=== PATIENT | female | born 1945 | race Caucasian/White ===

== ENCOUNTER 2019-01-07 14:54 | Emergency (ER) | payer OTHER, BC ==
[2019-01-07 15:14] VITALS: BP 147/87; PULSE 90; TEMP 98.4; BMI 36.6
[2019-01-07 15:47] LABS: BASO % 0.5 % (0-2.0); EOS % 4.5 % (0-4.5); HEMATOCRIT 25.1 % (32.4-45.2); HEMOGLOBIN 7.9 GM/dl (10.7-15.3); LYMPH % 20.5 % (8-40); MCH 22.3 pg (25.7-33.7); MCHC 31.5 g/dl (32.0-36.0); MEAN CELL VOLUME 70.7 fl (80-96); MEAN PLT VOLUME 7.9 fl (7.5-11.1); MONO % 6.6 % (3.8-10.2); NEUT % 67.9 % (42.8-82.8); PLATELET COUNT 377 K/MM3 (134-434); RBC 3.55 M/mm3 (3.60-5.2); RDW 16.7 % (11.6-15.6); WHITE BLOOD COUNT 11.5 K/mm3 (4.0-10.8)
[2019-01-07 15:48] LABS: ADD RBC MORPHOLOGY YES
--- NOTE | 2019-01-07 16:14 | PDOC ---
Documentation entered by Freedom Nascimento SCRIBE, acting as scribe for Charmaine Adam MD. Charmaine Adam MD: This documentation has been prepared by the Azam fisher Daniel, SCRIBE, under my direction and personally reviewed by me in its entirety. I confirm that the documentation accurately reflects all work, treatment, procedures, and medical decision making performed by me. History of Present Illness - General Chief Complaint: Lightheaded Stated Complaint: LOW H/H History Source: Patient Exam Limitations: No Limitations - History of Present Illness Initial Comments: 01/07/19 16:14 The patient is a 73 year old female with a past medical history of HTN, HLD, and GERD, hemorrhoids sent in today by her PCP for evaluation of abnormal lab values, for low h/H with Hb 7.1. Patient reports that she had blood draw last monday (01/04/19) in preparation for a colonoscopy and that her hemoglobin count was 7. She reports that this happened once before approximately 6 months ago, had anemia and was planned for colonoscopy at that time but ultimately cancelled.. She notes that she has hemorrhoids that bleed but denies any associated pain. not compliant with iron pills. Patient denies headache, lightheadedness. Denies fever, chills. Denies chest pain, shortness of breath. Denies nausea, vomiting, diarrhea, abdominal pain. Allergies: Social history: Denies illicit drug, alcohol, and tobacco use. PCP: Kia Escalante GI: Mani Kelley 01/07/19 16:21 01/07/19 16:21 Past History - Past Medical History Allergies/Adverse Reactions: Allergies Allergy/AdvReac Type Severity Reaction Status Date / Time No Known Allergies Allergy Verified 01/07/19 14:56 Home Medications: Ambulatory Orders Atenolol [Tenormin] 50 mg PO DAILY 01/07/19 Atorvastatin Ca [Lipitor] 10 mg PO HS 01/07/19 Lisinopril 10 mg PO HS 01/07/19 Ranitidine [Zantac -] 150 mg PO DAILY 01/07/19 Review of Systems - Review of Systems Able to Perform ROS?: Yes Comments:: 01/07/19 16:14 Constitutional: no fevers or chills. HEENT: no headache or dizziness. No congestion. No visual/hearing disturbances. CVS: no cp or syncope. Resp: no sob. No cough. Gastrointestinal: no abdominal pain, nausea or vomiting. Genitourinary: no urinary sx, hematuria. MUSCULOSKELETAL: No joint pain and swelling. No neck or back pain. SKIN: no redness or skin changes, no discharge, no rash. No wounds. Hematologic: no easy bruising/bleeding. +anemia NEUROLOGIC: No headache, dizziness, LOC or altered mental status. No weakness, numbness or tingling. Psych: no anxiety or depression Allergic/Immunologic: no allergies All other systems reviewed and negative, or as documented in HPI. 01/07/19 16:21 *Physical Exam - Vital Signs Last Vital Signs Temp Pulse Resp BP Pulse Ox 98.4 F 90 20 147/87 100 01/07/19 14:55 01/07/19 14:55 01/07/19 14:55 01/07/19 14:55 01/07/19 14:55 - Physical Exam Comments: 01/07/19 16:15 General: Well appearing, awake and alert, NAD. HEENT: NCAT, PERRL, EOMI, pale conjunctiva, anicteric, moist mucus membranes, clear oropharynx, no oral lesions.. Neck: neck supple, FROM Resp: CTAB, normal and even respirations, no respiratory distress CVS: RRR, no murmurs, 2+ peripheral pulses throughout, no peripheral edema Abdomen: soft, NTND, no rebound or guarding. No CVAT. Rectal: +external non bloody non thrombosed hemorrhoids and skin tags. no gross blood. Back: nontender, normal inspection and ROM MSK: no edema, CARABALLO x4, ROM intact. No clubbing or cyanosis. normal bulk and tone. Extremities: no calf tenderness Neuro: alert, oriented appropriately; no focal neurologic deficits Skin: warm and well perfused, cap refill <2 sec, mild pallor 01/07/19 16:22 ED Treatment Course - LABORATORY CBC & Chemistry Diagram: 01/07/19 15:38 - ADDITIONAL ORDERS Additional order review: 01/07/19 15:38 RBC 3.55 L MCV 70.7 L MCHC 31.5 L RDW 16.7 H D MPV 7.9 Neutrophils % 67.9 Lymphocytes % 20.5 Monocytes % 6.6 Eosinophils % 4.5 Basophils % 0.5 Medical Decision Making - Medical Decision Making 01/07/19 16:22 CBC recheck with confirmed anemia Hb 7.9, mildly symptomatic with notable pallor and h/o GIB without colonoscopy >10 years. advised further workup, call to PMD, transfusion for sx anemia, but pt declined The patient has requested to leave the ED against medical advice. The patient reason(s) for leaving include, but are not limited to, the following: she would like to consider with her GI and PMD for consultation before transfusion. I believe this patient is of sound mind and competent to refuse medical care. The patient is responding and asking questions appropriately. The patient is oriented to person, place and time. The patient is not psychotic, delusional, suicidal, homicidal or hallucinating. The patient demonstrates a normal mental capacity to make decisions regarding their healthcare. The patient is clinically sober and does not appear to be under the influence of any illicit drugs at this time. The patient has been advised of the risks, in layman terms, of leaving AMA which include, but are not limited to cardiac arrest, severe infection, mass, blood stream infection, dehydration, bleeding, liver failure, myocardial infarction, arrhythmia, stroke, respiratory failure, delay in diagnosis and management, loss of current lifestyle, loss of functional status, multiorgan failure, coma, severe disability and . Alternatives have been offered - the patient remains steadfast in their wish to leave. The patient has been advised that should they change their mind they are welcome to return to this hospital, or any other, at any time. The patient understands that in no way does an AMA discharge mean that I do not want them to have the best medical care available. To this end, I have provided appropriate prescriptions, referrals, and discharge instructions. The patient did sign AMA paperwork. The above discussion was witnessed by another member of staff, DANIEL Alcaraz clinical update with Dr Escalante - informed of results, followup outpatient. GI follow up by pt herself, will call and arrange for advised to start iron pills - as she has not been compliant. strict return precautions provided - bleeding, pain, syncope, sob, dizziness, pallor or other concerning sx. 01/08/19 14:18 *DC/Admit/Observation/Transfer Diagnosis at time of Disposition: Anemia, Hemorrhoid - Discharge Dispostion Disposition: TRANSFER ACUTE CARE/OTHER HOSP Condition at time of disposition: Stable Decision to Admit order: No - Referrals Referrals: Mani Kelley MD [Staff Physician] - Gurmeet Escalante [Primary Care Provider] - - Patient Instructions Printed Discharge Instructions: Anemia Additional Instructions: You are choosing to leave the ED against medical advice. The patient reason(s) for leaving include, but are not limited to, the following: you would like to speak and consult with your doctor your GI doctor may not perform a colonoscopy with your acute on chronic anemia you were advised to get optimized and transfused for your severe anemia. Your Hemoglobin was 7.9, Hematocrit 25.1 - this is very low compared to normal results for your gender and your prior results, hence your doctor sent you in for thorough evaluation You have been advised of the risks, in layman terms, of leaving AMA which include, but are not limited to cardiac arrest, severe infection, mass, blood stream infection, dehydration, bleeding, liver failure, myocardial infarction, arrhythmia, stroke, respiratory failure, delay in diagnosis and management, loss of current lifestyle, loss of functional status, multiorgan failure, coma, severe disability and . Alternatives have been offered - please consult with your doctor, resume iron pills and check your hemorrhoids and underlying GI bleeding /mass as possible causes. You have been advised that should they change their mind they are welcome to return to this hospital, or any other, at any time. you understand that in no way does an AMA discharge mean that I do not want them to have the best medical care available. To this end, you have been provided appropriate prescriptions, referrals, and discharge instructions. AMA paperwork signed. if worsening symptoms of shortness of breath, dizziness, color change, pallor, passing out, lethargy, bleeding, return sooner for further evaluation. - Post Discharge Activity
[2019-01-07 19:12] LABS: ANISOCYTOSIS 1+; PLATELET ESTIMATE ADEQUATE
== END 2019-01-07 16:18 | disposition left against medical advice (07) ==
LOC: FER 14:54 → SUPCPDRO 14:54 → FER 16:18
DX: D64.9 Anemia, unspecified (principal); K64.9 Unspecified hemorrhoids; I10 Essential (primary) hypertension; E78.5 Hyperlipidemia, unspecified; K21.9 Gastro-esophageal reflux disease without esophagitis
CPT/HCPCS: 36415; 85025; 99283-25

== ENCOUNTER 2020-05-10 09:24 | Emergency (ER) | payer OTHER, BC ==
--- NOTE | 2020-05-10 09:27 | PDOC ---
History of Present Illness <Ryan Espinoza - Last Filed: 05/10/20 09:53> - History of Present Illness Initial Comments: HPI 74yo F with PMH HTN, HLD, hx of colon ca s/p resection and chemotherapy, currently in remission, who presents with skin lesion above left eye x3 days. States that it has been worsening over the past 3 days with associated increased swelling in left lower eyelid. Has been using mupirocin () for 2 days without any improvement. States that she has previously had similar appearing lesion that resolved, although she does not remember what treatment was used, if any. Denies any known triggers or exposures - denies any new lotions, insect bites, sick contacts . Denies any change in vision; fevers, chills, chest pain, n/v, other rashes/lesions. Review of Systems CONSTITUTIONAL:denies fever, chills HEENT:denies rhinorrhea, nasal congestion, sore throat, eye pain, visual changes CARDIOVASCULAR:denies chest pain, palpitations, peripheral edema RESPIRATORY:denies cough, shortness of breath GASTROINTESTINAL: denies abdominal pain, nausea, vomiting MUSCULOSKELETAL:denies myalgia, arthralgia HEMATOLOGIC/IMMUNOLOGIC:denies easy bleeding, easy bruising NEUROLOGIC:denies headache, dizziness, mental status changes SKIN:reports lesion above eye; denies other rash, itching, pallor Physical Exam General: awake, alert, fully oriented, in no acute distress, well developed, well nourished Head: normocephalic, atraumatic Eyes: PERRL, EOMI, anicteric sclera, conjunctiva clear ENT: hearing grossly normal, moist mucous membranes Lung: equal breath sounds b/l, CTA b/l, no crackles, wheezes; no distress, speaks full sentences Heart: RRR, normal S1, S2, no murmurs appreciated Extremities: normal ROM, no edema, no erythema or tenderness Neuro: CN2-12 grossly intact, moves all extremities, normal speech, normal gait, sensation intact Skin: 1cm oval lesion at medial left eyelid with associated crusting, erythema, slight purulent drainage; slight left lower eyelid edema; warm, dry, normal skin turgor, capillary refill <2 seconds MDM 74yo F with PMH HTN, HLD, hx of colon ca s/p resection and chemotherapy, currently in remission, who presents with skin lesion above left eye x3 days. DDx including but not limited to: impetigo BP elevated on arrival - pt states that she did not take her HTN meds this am Will send mupirocin to her pharmacy Disposition: Discharge <Ana Armstrong - Last Filed: 05/10/20 17:37> - General Stated Complaint: LEFT EYE LESION/WOUND "SORE" Time Seen by Provider: 05/10/20 09:26 Past History <Ryan Espinoza - Last Filed: 05/10/20 09:53> - Medical History COPD: No - Psycho-Social/Smoking History Smoking History: Never smoked Have you smoked in the past 12 months: No <Ana Armstrong - Last Filed: 05/10/20 17:37> - Medical History Allergies/Adverse Reactions: Allergies Allergy/AdvReac Type Severity Reaction Status Date / Time No Known Allergies Allergy Verified 05/10/20 09:25 Home Medications: Ambulatory Orders Atenolol [Tenormin] 50 mg PO DAILY 01/07/19 Atorvastatin Ca [Lipitor] 10 mg PO HS 01/07/19 Amlodipine Besylate [Norvasc -] 5 mg PO DAILY 05/10/20 Mupirocin Ointment [Bactroban 2% Ointment -] 1 applic TP TID #1 tube 05/10/20 *Physical Exam - Vital Signs Last Vital Signs Temp Pulse Resp BP Pulse Ox 98.7 F 88 16 195/93 H 98 05/10/20 09:24 05/10/20 09:24 05/10/20 09:24 05/10/20 09:24 05/10/20 09:24 <Ryan Espinoza - Last Filed: 05/10/20 09:53> Discharge <OuRyan - Last Filed: 05/10/20 09:53> - Discharge Information Problems reviewed: Yes <Ana Armstrong - Last Filed: 05/10/20 17:37> - Discharge Information Clinical Impression/Diagnosis: Impetigo Condition: Stable Disposition: HOME - Additional Discharge Information Prescriptions: Mupirocin Ointment [Bactroban 2% Ointment -] 1 applic TP TID #1 tube - Follow up/Referral Referrals: Gurmeet Escalante [Primary Care Provider] - - Patient Discharge Instructions Patient Printed Discharge Instructions: DI for Impetigo Additional Instructions: You came into the ER for impetigo. In the ED, you were evaluated with physical exam. You do not appear to be an acute need for immediate hospitalization. You were advised to follow up with your primary care doctor as needed. You were given a prescription for mupirocin. Apply this to the affected area three times a day until your symptoms resolve. You also need to have your blood pressure re-checked by your primary doctor, as it was slightly elevated today. Uncontrolled blood pressure can eventually lead to kidney disease, heart disease, other serious illness, disability, or even . Come back to the ER immediately with any new or worsening concerns. Thank you for coming to the [facility] ER. We hope you feel better soon! - Post Discharge Activity
[2020-05-10 09:30] VITALS: BP 195/93; PULSE 88; TEMP 98.7; BMI 34.9
--- NOTE | 2020-05-10 09:52 | PDOC ---
Attending Attestation - Resident Resident Name: Ana Armstrong - ED Attending Attestation I have performed the following: I have examined & evaluated the patient, The case was reviewed & discussed with the resident, I agree w/resident's findings & plan, Exceptions are as noted - HPI HPI: 05/10/20 09:47 74 F with h/o HTN, colon CA s/p resection and chemotherapy, presenting to ED with lesion above L eye. Pt states that 3 days ago she noticed a small sore medial to her L eyebrow. Over the next few days, it got progressively bigger. She notes yellow crusting and clearish drainage from the sore. Denies any F/C or other symptoms. Pt notes that she had a similar lesion near her lip several years ago that was treated with abx ointment. She has been applying her old mupirocin ointment to the sore but notes the ointment in 2014. - Physicial Exam PE: 05/10/20 09:49 "GENERAL: Awake, alert, and fully oriented, in no acute distress. HEAD: No signs of trauma EYES: PERRLA, EOMI, sclera anicteric, conjunctiva clear ENT: Auricles normal inspection, hearing grossly normal, nares patent, oropharynx clear without exudates. Moist mucosa NECK: Nontender, no stepoffs, Normal ROM, supple, no lymphadenopathy, JVD, or masses LUNGS: Breath sounds equal, clear to auscultation bilaterally. No wheezes, and no crackles HEART: Regular rate and rhythm, normal S1 and S2, no murmurs, rubs or gallops ABDOMEN: Soft, nontender, normoactive bowel sounds. No guarding, no rebound. No masses EXTREMITIES: Normal range of motion, no edema. No clubbing or cyanosis. No cords, erythema, or tenderness NEUROLOGICAL: Cranial nerves II through XII intact. 5/5 strength and sensation in all extremities, Normal speech, normal gait, normal cerebellar function SKIN: + 1cm lesion to medial L eyebrow with yellow crusting - Medical Decision Making 05/10/20 09:50 74 F with likely impetigo. Pt using mupirocin ointment that in 2014. Will send new prescription. - Mupirocin ointment Pt noted to be hypertensive in ED. States she did not take her BP meds today. Denies any CP/SOB/headache. Pt is well appearing. Clinically stable for DC at this time. I discussed the physical exam findings, ancillary test results and final diagnoses with the patient. I answered all of the patient's questions. The patient was satisfied with the care received and felt comfortable with the discharge plan and treatment plan. The patient agrees to follow up with the primary care physician within 24-72 hours. Discharge - Discharge Information Problems reviewed: Yes Clinical Impression/Diagnosis: Impetigo Condition: Stable Disposition: HOME - Additional Discharge Information Prescriptions: Mupirocin Ointment [Bactroban 2% Ointment -] 1 applic TP TID #1 tube - Follow up/Referral Referrals: Gurmeet Escalante [Primary Care Provider] - - Patient Discharge Instructions Patient Printed Discharge Instructions: DI for Impetigo Additional Instructions: You came into the ER for impetigo. In the ED, you were evaluated with physical exam. You do not appear to be an acute need for immediate hospitalization. You were advised to follow up with your primary care doctor as needed. You were given a prescription for mupirocin. Apply this to the affected area three times a day until your symptoms resolve. You also need to have your blood pressure re-checked by your primary doctor, as it was slightly elevated today. Uncontrolled blood pressure can eventually lead to kidney disease, heart disease, other serious illness, disability, or even . Come back to the ER immediately with any new or worsening concerns. Thank you for coming to the [facility] ER. We hope you feel better soon! - Post Discharge Activity
== END 2020-05-10 10:09 | disposition home or self-care (01) ==
LOC: FER 09:24
DX: L01.00 Impetigo, unspecified (principal)
CPT/HCPCS: 99282-25

== ENCOUNTER 2020-05-12 13:09 | Emergency (ER) | payer OTHER, BC ==
[2020-05-12 13:17] VITALS: BP 123/88; PULSE 70; TEMP 97.8; BMI 34.3
--- NOTE | 2020-05-12 13:48 | PDOC ---
History of Present Illness - General Chief Complaint: Redness To Affected Area Stated Complaint: LEFT ORBITAL/EYE AREA LESION, REDNESS, SWELLING Time Seen by Provider: 05/12/20 13:11 History Source: Patient Exam Limitations: No Limitations - History of Present Illness Initial Comments: 05/12/20 13:57 74y F hx of htn, hl, hx of colon ca in the remote past currently in remission presents with several days of L eye lesion, pt notse she noticed a small lesion on her L eye with some clear yellow crusting/discharge, She denies any initial irritation, itching, scratching, pain, numbness or tingling, wound/inury - It seemed to gradually gotten worse she came to the ER 2 days ago for evaluation was diagnosed with impetigo and started on mupuricin. The patient went to follow-up with ophtho yesterday and was given oral abx. The patient presents today as she thinks that there is increased swelling of the upper eyelid. Patient denies any fever, chills, headache, any eye discomfort, blurry vision, double vision, pain with eye movement, difficulty hearing, recent uri/illness. Pt yazan any other sx including rash elswhere, cp, sob, cough, n/v, abd pain, back pain. ROS: CONSTITUTIONAL:denies fever, chills HEENT:denies rhinorrhea, nasal congestion, sore throat, eye pain, visual changes CARDIOVASCULAR:denies chest pain, palpitations, peripheral edema RESPIRATORY:denies cough, shortness of breath GASTROINTESTINAL: denies abdominal pain, nausea, vomiting MUSCULOSKELETAL:denies myalgia, arthralgia HEMATOLOGIC/IMMUNOLOGIC:denies easy bleeding, easy bruising NEUROLOGIC:denies headache, dizziness, mental status changes SKIN:+L forehead lesion; denies other rash, itching, pallor Physical Exam General: awake, alert, fully oriented, in no acute distress, well developed, well nourished Head: normocephalic, atraumatic Eyes: PERRL, EOMI, anicteric sclera, conjunctiva clear, mild edema of L upper eye lid without any tenderness, induration, ENT: hearing grossly normal, moist mucous membranes, no lesions noted on TM or ear cannal Extremities: normal ROM, no edema, no erythema or tenderness Skin: 1cm hyperpigmented lesion at medial to L eye brow with yellowish crusting, yellowish crusting/raised lesion on the lateral aspect of L eye lid, no fluctuance, significant erythema, induration. rasied slightly erythemadous round pustules o nthe L forhead and L hairline. No rash to tip of nose. MDM suspect impetigo, possible suprainfection of shingles as there are some round pusutular lesions along L V1 distribution and does not seem to cross midline. no vision changes, will have pt continue augmentin (was only on it for 1 day), abx ointment and will start valtrex will refer pt to dermatology for further management/evaluation. returnp recautions were discussed I discussed the physical exam findings, ancillary test results and final diagnoses with the patient. I answered all of the patient's questions. The patient was satisfied with the care received and felt comfortable with the discharge plan and treatment plan. The patient will call their primary care physician within 24 hours to arrange follow-up and will return to the Emergency Department with any new, persistent or worsening symptoms. Past History - Medical History Allergies/Adverse Reactions: Allergies Allergy/AdvReac Type Severity Reaction Status Date / Time Sulfa (Sulfonamide Allergy Verified 05/12/20 13:11 Antibiotics) Home Medications: Ambulatory Orders Atenolol [Tenormin] 50 mg PO DAILY 01/07/19 Atorvastatin Ca [Lipitor] 10 mg PO HS 01/07/19 Amlodipine Besylate [Norvasc -] 5 mg PO DAILY 05/10/20 Mupirocin Ointment [Bactroban 2% Ointment -] 1 applic TP TID #1 tube 05/10/20 Amox-Tr/K Cl [Augmentin - 875Mg Tablet] 1 tab PO BID 05/12/20 Neomycin/Polymyxin B/Dexametha [Qhxjys-Zxmkx-Mlifybu Eye Ointm] 0.5 applic OS BID 05/12/20 Valacyclovir HCl [Valtrex] 1,000 mg PO TID #21 tablet 05/12/20 Cancer: Yes (COLOMN) COPD: No HTN: Yes Hypercholesterolemia: Yes - Surgical History Abdominal Surgery: Yes (colon tumor removed) - Reproductive History Is Patient Now?: No - Psycho-Social/Smoking History Smoking History: Never smoked Have you smoked in the past 12 months: No Information on smoking cessation initiated: No - Substance Abuse Hx (Audit-C & DAST Scrn) How often the patient has a drink containing alcohol: Never Score: In Men: 4 or > Positive; In Women: 3 or > Positive: 0 Screen Result (Pos requires Nsg. Audit-10AR): Negative In the last yr the pt used illegal drug/Rx for NonMed reason: No Score: Yes response is considered Positive: 0 Screen Result (Positive result requires Nsg. DAST-10): Negative *Physical Exam - Vital Signs Last Vital Signs Temp Pulse Resp BP Pulse Ox 97.8 F 70 18 123/88 99 05/12/20 13:09 05/12/20 13:09 05/12/20 13:09 05/12/20 13:05/12/20 13:09 Discharge - Discharge Information Problems reviewed: Yes Clinical Impression/Diagnosis: Impetigo Shingles Qualifiers: Herpes zoster complications: without complications Qualified Code(s): B02.9 - Zoster without complications Condition: Stable Disposition: HOME - Admission No - Additional Discharge Information Prescriptions: Valacyclovir HCl [Valtrex] 1,000 mg PO TID #21 tablet - Follow up/Referral Referrals: Gurmeet Escalante [Primary Care Provider] - Neeru Aguilar MD [Staff Physician] - - Patient Discharge Instructions Patient Printed Discharge Instructions: DI for Shingles, DI for Impetigo Additional Instructions: Return to the emergency department immediately with ANY new, persistent or worsening symptoms Including any fever, chills, headache, nausea, vomiting, vision changes. Cold compress to the eyes to minimize any swelling. And the area gently 2-3 times a day with soapy water and pat dry. Apply topical antibiotic to the affected lesions as directed. This is shingles please avoid contact with immunocompromised, extremely young or extremely old, people. You MUST call and follow up a smog technician within 2-3 days for further evaluation of your symptoms. Results were discussed with you. Please make sure your doctor reviews the results of your emergency evaluation. Your Emergency Department visit is not complete without a follow up with your doctor. Print Language: HONG KONGER - Post Discharge Activity
== END 2020-05-12 14:05 | disposition home or self-care (01) ==
LOC: FER 13:09
DX: B02.9 Zoster without complications (principal)
CPT/HCPCS: 99282-25

== ENCOUNTER 2020-08-04 05:23 | Day surgery (SDC) | payer OTHER, BC ==
[2020-07-30 14:13] VITALS: BMI 34.3
[2020-08-04 08:37] VITALS: TEMP 98.6
[2020-08-04 09:02] VITALS: PULSE 72
[2020-08-04 09:12] VITALS: BP 149/54
== END 2020-08-04 09:19 | disposition home or self-care (01) ==
LOC: JASU-ENDO 05:23
PROVIDERS: ATTEND Internal Medicine Gastroenterology
PROC: 0DJD8ZZ Inspection of Lower Intestinal Tract, Via Natural or Artificial Opening Endoscopic (ICD-10-PCS; principal; 2020-08-04 08:00)
DX: Z12.11 Encounter for screening for malignant neoplasm of colon (principal); K57.30 Diverticulosis of large intestine without perforation or abscess without bleeding; Z98.0 Intestinal bypass and anastomosis status; Z86.010 Personal history of colon polyps

== ENCOUNTER 2020-12-27 11:38 | Inpatient (IN) | payer OTHER, BC ==
[2020-12-27 11:55] VITALS: BMI 34.9
[2020-12-27] MEDS ORDERED: LIDOCAINE 5% TOPICAL PATCH TP ONE (12:21)
[2020-12-27] MEDS ORDERED: ACETAMINOPHEN 325 MG TABLET (FP) PO ONE (12:21)
[2020-12-27] MEDS ORDERED: LIDOCAINE 5% TOPICAL PATCH ONE (12:25)
[2020-12-27] MEDS ORDERED: ACETAMINOPHEN 325 MG TABLET (FP) ONE (12:25)
[2020-12-27 14:15] LABS: BASO % 0.3 % (0-2.0); EOS % 0.3 % (0-4.5); HEMATOCRIT 36.9 % (32.4-45.2); HEMOGLOBIN 12.4 GM/dl (10.7-15.3); LYMPH % 10.4 % (8-40); MCH 30.4 pg (25.7-33.7); MCHC 33.7 g/dl (32.0-36.0); MEAN CELL VOLUME 90.2 fl (80-96); MEAN PLT VOLUME 7.9 fl (7.5-11.1); MONO % 2.8 % (3.8-10.2); NEUT % 86.2 % (42.8-82.8); PLATELET COUNT 258 K/MM3 (134-434); WHITE BLOOD COUNT 17.4 K/mm3 (4.0-10.8)
[2020-12-27 14:26] LABS: ACTIVATED PTT 21.3 SECONDS (25.2-36.5)
[2020-12-27 14:28] LABS: ALBUMIN 3.8 g/dl (3.4-5.0); BILIRUBIN,TOTAL 0.7 mg/dl (0.2-1); CALCIUM 9.4 mg/dl (8.5-10); CREATININE 1.3 mg/dl (0.55-1.3); TOT PROT 7.9 g/dl (6.4-8.2)
[2020-12-27] MEDS ORDERED: HEPARIN NA (PORCINE) 5,000 UNITS/ML 1ML VIAL SQ ONE (14:29)
[2020-12-27 14:31] LABS: INR 1.14 (0.82-1.09); PROTHROMBIN TIME (PATIENT) 12.7 SEC (10.2-13.0)
[2020-12-27] MEDS ORDERED: HEPARIN NA (PORCINE) 5,000 UNITS/ML 1ML VIAL ONE (15:27)
[2020-12-27] MEDS ORDERED: HYDROmorphone HCl 2 MG/ML VIAL IM PRN (15:53)
[2020-12-27] MEDS: ACETAMINOPHEN 325 MG TABLET (FP) PO PRN (17:14)
[2020-12-27] MEDS: MORPHINE SULFATE 2 MG/ML VIAL IVPB PRN ×2 (18:43→22:38)
[2020-12-27] MEDS: ATORVASTATIN CA 10 MG TABLET (FP) PO SCH (21:18)
[2020-12-27] MEDS ORDERED: LIDOCAINE PATCH REMOVAL MC SCH (22:00)
[2020-12-28] MEDS: MORPHINE SULFATE 2 MG/ML VIAL IVPB PRN ×4 (05:20→22:48)
[2020-12-28 08:17] LABS: HEMATOCRIT 32.7 % (32.4-45.2); MCHC 33.5 g/dl (32.0-36.0); MEAN CELL VOLUME 89.5 fl (80-96); MEAN PLT VOLUME 8.4 fl (7.5-11.1); PLATELET COUNT 234 K/MM3 (134-434); RBC 3.66 M/mm3 (3.60-5.2); RDW 13.9 % (11.6-15.6); WHITE BLOOD COUNT 11.7 K/mm3 (4.0-10.8)
[2020-12-28 08:22] LABS: ALBUMIN 3.3 g/dl (3.4-5.0); BILIRUBIN,TOTAL 0.9 mg/dl (0.2-1); CALCIUM 8.9 mg/dl (8.5-10); CREATININE 1.1 mg/dl (0.55-1.3); MAGNESIUM 1.6 mg/dL (1.8-2.4); TOT PROT 7.4 g/dl (6.4-8.2)
[2020-12-28] MEDS: amLODIPine BESYLATE 5 MG TABLET (FP) PO SCH (09:32)
[2020-12-28] MEDS: ATENOLOL 50 MG TABLET (FP) PO SCH (09:32)
[2020-12-28] MEDS: LISINOPRIL 10 MG TABLET PO SCH (09:32)
[2020-12-28] MEDS: ACETAMINOPHEN 325 MG TABLET (FP) PO PRN ×2 (13:56→21:14)
[2020-12-28] MEDS: ATORVASTATIN CA 10 MG TABLET (FP) PO SCH (21:13)
[2020-12-29] MEDS: MORPHINE SULFATE 2 MG/ML VIAL IVPB PRN (04:11)
[2020-12-29 08:04] LABS: BASO % 0.3 % (0-2.0); EOS % 4.5 % (0-4.5); HEMATOCRIT 32.7 % (32.4-45.2); LYMPH % 19.6 % (8-40); MCH 30.4 pg (25.7-33.7); MCHC 33.8 g/dl (32.0-36.0); MEAN CELL VOLUME 90.1 fl (80-96); MEAN PLT VOLUME 8.1 fl (7.5-11.1); MONO % 7.9 % (3.8-10.2); NEUT % 67.7 % (42.8-82.8); PLATELET COUNT 230 K/MM3 (134-434); RBC 3.63 M/mm3 (3.60-5.2); RDW 13.9 % (11.6-15.6); WHITE BLOOD COUNT 12.4 K/mm3 (4.0-10.8)
[2020-12-29 08:12] LABS: CALCIUM 8.8 mg/dl (8.5-10); CREATININE 1.1 mg/dl (0.55-1.3); MAGNESIUM 1.7 mg/dL (1.8-2.4)
[2020-12-29] MEDS: LISINOPRIL 10 MG TABLET PO SCH (09:15)
[2020-12-29] MEDS: ATENOLOL 50 MG TABLET (FP) PO SCH (09:15)
[2020-12-29] MEDS: amLODIPine BESYLATE 5 MG TABLET (FP) PO SCH (09:16)
[2020-12-29 12:45] LABS: EPITHELIAL CELLS FEW /hpf
[2020-12-29] MEDS ORDERED: ceFAZolin SODIUM 1 GM VIAL ONE ×2 (13:06→14:20)
[2020-12-29] MEDS ORDERED: VANCOMYCIN 1,000 MG VIAL (RESTRICTED TO ID ONLY) ONE (13:06)
[2020-12-29] MEDS ORDERED: MIDAZOLAM HCL 2 MG/2 ML SINGLE DOSE VIAL ONE (13:38)
[2020-12-29] MEDS ORDERED: PROPOFOL 20 ML ONE ×3 (13:41→15:05)
[2020-12-29] MEDS ORDERED: MAGNESIUM HYDROX 2400MG/30ML ORAL SUSPENSION 30 ML CUP PO PRN ×2 (14:07→18:30)
[2020-12-29] MEDS ORDERED: ONDANSETRON 4 MG/2 ML VIAL IVPUSH PRN ×3 (14:07→18:30)
[2020-12-29] MEDS ORDERED: MAG HYDROX/AL HYDROX/SIMETH 30 ML UNIT-DOSE CUP PO PRN ×2 (14:07→18:30)
[2020-12-29] MEDS ORDERED: LACTATED RINGERS SOLUTION 1,000 ML IV SCH ×2 (14:15→16:00)
[2020-12-29] MEDS ORDERED: TRANEXAMIC ACID 1000 MG/10 ML VIAL ONE (14:29)
[2020-12-29] MEDS ORDERED: EPINEPHrine/PF 1 MG/1 ML (1:1,000) AMPULE ONE (14:36)
[2020-12-29] MEDS ORDERED: PHENYLEPHRINE HCL 10 MG/1 ML SINGLE DOSE VIAL ONE (14:36)
[2020-12-29] MEDS ORDERED: DEXAMETHASONE SOD PHOSPHATE 4 MG/1 ML VIAL ONE (15:13)
[2020-12-29] MEDS ORDERED: ONDANSETRON 4 MG/2 ML VIAL ONE (15:13)
[2020-12-29] MEDS ORDERED: HYDROmorphone *PCA* 10MG/50ML DISP.SYRIN ONE (15:59)
[2020-12-29] MEDS ORDERED: HYDROmorphone *PCA* 10MG/50ML DISP.SYRIN PCA SCH (16:00)
[2020-12-29] MEDS ORDERED: PCA PUMP NR ONE (16:16)
[2020-12-29] MEDS ORDERED: MORPHINE SULFATE 2 MG/ML VIAL IVPB PRN (18:30)
[2020-12-29] MEDS: CEFAZOLIN 2 GM/D5W 2 GM/50 ML ML IVPB SCH (21:24)
[2020-12-29] MEDS: ATORVASTATIN CA 10 MG TABLET (FP) PO SCH (21:26)
[2020-12-29] MEDS: SENNOSIDES/DOCUSATE COMBO (SENNA PLUS) TABLET (UD) PO SCH (21:26)
[2020-12-29] MEDS ORDERED: SENNOSIDES/DOCUSATE COMBO (SENNA PLUS) TABLET (UD) PO SCH (22:00)
[2020-12-29] MEDS ORDERED: CEFAZOLIN 2 GM/D5W 2 GM/50 ML ML IVPB SCH (22:00)
[2020-12-30] MEDS: CEFAZOLIN 2 GM/D5W 2 GM/50 ML ML IVPB SCH (05:47)
[2020-12-30] MEDS ORDERED: ASPIRIN 325 MG TABLET PO SCH (08:00)
[2020-12-30 08:02] LABS: BASO % 0.2 % (0-2.0); EOS % 0.7 % (0-4.5); HEMOGLOBIN 9.3 GM/dl (10.7-15.3); LYMPH % 16.5 % (8-40); MCH 30.9 pg (25.7-33.7); MCHC 34.4 g/dl (32.0-36.0); MEAN CELL VOLUME 89.8 fl (80-96); MEAN PLT VOLUME 8.1 fl (7.5-11.1); MONO % 8.5 % (3.8-10.2); NEUT % 74.1 % (42.8-82.8); PLATELET COUNT 180 K/MM3 (134-434); RBC 3.01 M/mm3 (3.60-5.2); RDW 13.7 % (11.6-15.6); WHITE BLOOD COUNT 11.9 K/mm3 (4.0-10.8)
[2020-12-30 08:25] LABS: ALBUMIN 2.7 g/dl (3.4-5.0); BILIRUBIN,TOTAL 0.7 mg/dl (0.2-1); CALCIUM 8.2 mg/dl (8.5-10); CREATININE 1.3 mg/dl (0.55-1.3); MAGNESIUM 1.6 mg/dL (1.8-2.4); TOT PROT 6.2 g/dl (6.4-8.2)
[2020-12-30] MEDS: ASPIRIN 325 MG TABLET PO SCH (08:45)
[2020-12-30] MEDS ORDERED: MAGNESIUM SULF 50% (8.12 MEQ/2 ML-1 GM VIAL) IVPB ONE (09:38)
[2020-12-30] MEDS ORDERED: MAGNESIUM SULFATE IN WATER 2 GM/50 ML IVPB IVPB ONE (10:00)
[2020-12-30] MEDS ORDERED: PANTOPRAZOLE 40 MG TABLET PO SCH (10:00)
[2020-12-30] MEDS: SENNOSIDES/DOCUSATE COMBO (SENNA PLUS) TABLET (UD) PO SCH ×2 (10:01→21:14)
[2020-12-30] MEDS: amLODIPine BESYLATE 5 MG TABLET (FP) PO SCH (10:01)
[2020-12-30] MEDS: PANTOPRAZOLE 40 MG TABLET PO SCH (10:02)
[2020-12-30] MEDS: ATENOLOL 50 MG TABLET (FP) PO SCH (10:02)
[2020-12-30] MEDS: LISINOPRIL 10 MG TABLET PO SCH (10:02)
[2020-12-30] MEDS: ACETAMINOPHEN 325 MG TABLET (FP) PO PRN (10:02)
[2020-12-30] MEDS: ATORVASTATIN CA 10 MG TABLET (FP) PO SCH (21:13)
[2020-12-31] MEDS: ACETAMINOPHEN 325 MG TABLET (FP) PO PRN ×2 (04:27→09:49)
[2020-12-31 06:03] VITALS: BP 148/47; PULSE 83; TEMP 98.7
[2020-12-31 07:58] LABS: HEMATOCRIT 25.2 % (32.4-45.2); HEMOGLOBIN 8.7 GM/dl (10.7-15.3); MCHC 34.7 g/dl (32.0-36.0); MEAN CELL VOLUME 89.2 fl (80-96); MEAN PLT VOLUME 8.4 fl (7.5-11.1); PLATELET COUNT 170 K/MM3 (134-434); RBC 2.82 M/mm3 (3.60-5.2); RDW 13.6 % (11.6-15.6); WHITE BLOOD COUNT 12.3 K/mm3 (4.0-10.8)
[2020-12-31] MEDS: SENNOSIDES/DOCUSATE COMBO (SENNA PLUS) TABLET (UD) PO SCH (09:50)
[2020-12-31] MEDS: ATENOLOL 50 MG TABLET (FP) PO SCH (09:51)
[2020-12-31] MEDS: amLODIPine BESYLATE 5 MG TABLET (FP) PO SCH (09:51)
[2020-12-31] MEDS: PANTOPRAZOLE 40 MG TABLET PO SCH (09:51)
[2020-12-31] MEDS: ASPIRIN 325 MG TABLET PO SCH (09:52)
[2020-12-31] MEDS: LISINOPRIL 10 MG TABLET PO SCH (09:52)
== END 2020-12-31 14:14 | disposition home or self-care (01) | DRG 522 ==
LOC: FER 11:38 → FM/S 13:59
PROVIDERS: ADMIT Internal Medicine; ATTEND Nurse Practitioner Acute Care
PROC: 8E0W0CZ Robotic Assisted Procedure of Trunk Region, Open Approach (ICD-10-PCS; 2020-12-29)
PROC: 0SRB0J9 Replacement of Left Hip Joint with Synthetic Substitute, Cemented, Open Approach (ICD-10-PCS; principal; 2020-12-29 14:30)
DX: S72.142A Displaced intertrochanteric fracture of left femur, initial encounter for closed fracture (principal); M16.12 Unilateral primary osteoarthritis, left hip; I10 Essential (primary) hypertension; E78.5 Hyperlipidemia, unspecified; W17.89XA Other fall from one level to another, initial encounter; Y92.89 Other specified places as the place of occurrence of the external cause; Z85.038 Personal history of other malignant neoplasm of large intestine
CPT/HCPCS: 36415; 70450-TC; 71045-TC-FY; 72125-TC; 73502-TC-LT-FY; 73523-TC-FY; 73700-TC-RT; 80048; 80053; 81003; 81015; 83735; 85025; 85027; 85610; 85730; 86850; 86900; 86901; 87040; 87086; 93005; 94760; 97010-GP; 97116-GP; 97163-GP; 99285-25; C9803; J1644; U0003; U0005

== ENCOUNTER 2023-08-11 10:38 | Emergency (ER) | payer OTHER, BC ==
[2023-08-11 10:50] VITALS: TEMP 97.9; BMI 32.4
[2023-08-11 12:32] VITALS: BP 184/101; PULSE 77; RESP 16
== END 2023-08-11 12:30 | disposition home or self-care (01) ==
LOC: FER 10:38
DX: M79.644 Pain in right finger(s) (principal); R22.41 Localized swelling, mass and lump, right lower limb
CPT/HCPCS: 73130-TC-RT-FY; 99283-25

== ENCOUNTER 2023-08-29 13:45 | Emergency (ER) | payer OTHER, BC ==
[2023-08-29] MEDS ORDERED: ACETAMINOPHEN 1000 MG/100 ML BAG IVPB ONE (13:59)
[2023-08-29] MEDS ORDERED: LIDOCAINE 5% TOPICAL PATCH TP ONE (13:59)
[2023-08-29 14:02] VITALS: BP 171/71; BMI 32.4
[2023-08-29] MEDS ORDERED: ACETAMINOPHEN INJECTION 100 ML IVPB ONE (14:15)
[2023-08-29 14:21] VITALS: TEMP 98.3
[2023-08-29] MEDS ORDERED: LIDOCAINE 5% TOPICAL PATCH ONE (14:31)
[2023-08-29 14:35] LABS: HEMATOCRIT 34.4 % (32.4-45.2); HEMOGLOBIN 11.5 G/dL (10.7-15.3); MCH 30.2 pg (25.7-33.7); MCHC 33.5 g/dl (32.0-36.0); MEAN CELL VOLUME 90.1 fl (80-96); MEAN PLT VOLUME 8.8 fl (7.5-11.1); PLATELET COUNT 276.4 10^3/uL (134-434); RBC 3.82 10^6/uL (3.60-5.2); RDW 14.8 % (11.6-15.6); WHITE BLOOD COUNT 13.9 10^3/uL (4.0-10.8)
[2023-08-29 14:38] LABS: ALBUMIN 3.8 g/dl (3.4-5.0); BILIRUBIN,TOTAL 0.7 mg/dl (0.2-1); CALCIUM 9.2 mg/dl (8.5-10.1); CREATININE 1.4 mg/dl (0.6-1.3); TOT PROT 7.9 g/dl (6.4-8.2)
[2023-08-29 14:40] LABS: PLATELET ESTIMATE ADEQUATE
[2023-08-29] MEDS ORDERED: SODIUM CHLORIDE 0.9% 500 ML INFUS.BAG IV ONE (14:58)
[2023-08-29 15:54] LABS: EPITHELIAL CELLS 0-5 /hpf
[2023-08-29 17:01] VITALS: PULSE 87; RESP 18
[2023-08-29] MEDS ORDERED: LIDOCAINE PATCH REMOVAL MC ONE (22:00)
== END 2023-08-29 17:05 | disposition home or self-care (01) ==
LOC: FER 13:45
PROC: 3E033NZ Introduction of Analgesics, Hypnotics, Sedatives into Peripheral Vein, Percutaneous Approach (ICD-10-PCS; principal; 2023-08-29)
DX: M54.50 Low back pain, unspecified (principal); R10.9 Unspecified abdominal pain; W01.0XXA Fall on same level from slipping, tripping and stumbling without subsequent striking against object, initial encounter; Y92.002 Bathroom of unspecified non-institutional (private) residence as the place of occurrence of the external cause
CPT/HCPCS: 36415; 71101-TC-RT-FY; 71260-TC; 74177-TC; 80053; 81003; 81015; 85027; 87086; 99285-25

== ENCOUNTER 2023-12-27 19:42 | Emergency (ER) | payer OTHER, BC ==
[2023-12-27 19:55] VITALS: PULSE 87; RESP 18; TEMP 98.3; BMI 31.6
[2023-12-27] MEDS ORDERED: cloNIDine HCL 0.1 MG TABLET ONE (20:13)
[2023-12-27] MEDS: cloNIDine HCL 0.1 MG TABLET PO ONE (20:17)
[2023-12-27] MEDS: ACETAMINOPHEN 1000 MG/100 ML BAG IVPB ONE (21:45)
[2023-12-27] MEDS ORDERED: ACETAMINOPHEN INJECTION 100 ML IVPB ONE (21:45)
[2023-12-27 21:51] LABS: HEMATOCRIT 36.6 % (32.4-45.2); HEMOGLOBIN 12.2 G/dL (10.7-15.3); MCH 29.7 pg (25.7-33.7); MCHC 33.2 g/dl (32.0-36.0); MEAN CELL VOLUME 89.6 fl (80-96); MEAN PLT VOLUME 8.8 fl (7.5-11.1); RBC 4.09 10^6/uL (3.60-5.2); RDW 14.5 % (11.6-15.6); WHITE BLOOD COUNT 12.9 10^3/uL (4.0-10.8)
[2023-12-27 22:37] LABS: ALBUMIN 3.6 g/dl (3.4-5.0); BILIRUBIN,TOTAL 0.3 mg/dl (0.2-1); CALCIUM 8.9 mg/dl (8.5-10.1); CREATININE 1.2 mg/dl (0.6-1.3); MAGNESIUM 1.6 mg/dL (1.8-2.4); PHOSPHOROUS 3.1 (2.5-4.9); POTASSIUM 4.2 mmol/L (3.5-5.1); TOT PROT 7.6 g/dl (6.4-8.2)
[2023-12-27] MEDS ORDERED: predniSONE 20 MG TABLET (UD) ONE (23:03)
[2023-12-27] MEDS ORDERED: AMOX TR/POT CLAV 875MG/125MG TABLETS (FP) ONE (23:03)
[2023-12-27] MEDS: AMOX TR/POT CLAV 875MG/125MG TABLETS (FP) PO ONE (23:04)
[2023-12-27] MEDS: predniSONE 20 MG TABLET (UD) PO ONE (23:04)
[2023-12-28 01:58] VITALS: BP 188/70
== END 2023-12-27 23:39 | disposition home or self-care (01) ==
LOC: FER 19:42
PROC: 3E030NZ Introduction of Analgesics, Hypnotics, Sedatives into Peripheral Vein, Open Approach (ICD-10-PCS; principal; 2023-12-27)
DX: M19.021 Primary osteoarthritis, right elbow (principal); M10.9 Gout, unspecified; L03.113 Cellulitis of right upper limb
CPT/HCPCS: 36415; 71045-TC-FY; 80053; 82550; 83605; 83735; 84100; 84484; 85027; 85651; 93005; 93971; 99285-25; J0131

== ENCOUNTER 2024-11-07 11:18 | Emergency (ER) | payer OTHER, BC ==
[2024-11-07 11:36] VITALS: BP 95/80; PULSE 77; RESP 16; TEMP 98.8; BMI 29.9
== END 2024-11-07 12:54 | disposition home or self-care (01) ==
LOC: FER 11:18
DX: U07.1 COVID-19 (principal); R09.81 Nasal congestion; R05.9 Cough, unspecified
CPT/HCPCS: 0241U-QW; 71046-TC-FY; 99284-25

== ENCOUNTER 2025-05-15 13:52 | Inpatient (IN) | payer OTHER, BC ==
[2025-05-15 14:00] VITALS: BMI 33.3
[2025-05-15 15:27] LABS: ABSOLUTE IMMATURE GRANULOCYTES 0.13 x10^3/uL (0.0-0.031); BASOPHILS # 0.07 x10^3/uL (0.01-0.08); EOSINOPHIL % 2.4 % (0.7-5.8); EOSINOPHILS # 0.32 x10^3/uL (0.04-0.36); MCHC 32.0 g/dl (32.2-35.5); MEAN CELL VOLUME 85.5 fl (79.4-94.8); MEAN PLT VOLUME 9.3 fl (9.4-12.3); MONOCYTE # 0.84 x10^3/uL (0.24-0.86); MONOCYTE % 6.2 % (4.7-12.5); RDW 14.1 % (12.5-17.0)
[2025-05-15 15:52] LABS: GLUCOSE,RANDOM 136.0 mg/dL (74-106)
[2025-05-15 15:53] LABS: TOT PROT 8.0 g/dl (6.4-8.2)
[2025-05-15 15:54] LABS: CO2 18.0 mmol/L (21-32)
[2025-05-15 15:55] LABS: ALK PHOS 144.0 U/L (40-150)
[2025-05-15 15:58] LABS: CREATININE 1.62 mg/dL (0.55-1.3); SGOT/AST 31.0 U/L (5-34); SGPT/ALT 17.0 U/L (0-55)
[2025-05-15 16:07] LABS: N-TERMINAL BNP 283.5 pg/mL (0-299.9)
[2025-05-15 16:17] LABS: HCV DIAGNOSTIC IN-HOUSE W/RFLX NON-REACTIVE (NONREACTIVE); HIV INTERPRETATION NEGATIVE (NEGATIVE)
[2025-05-15] MEDS: SODIUM CHLORIDE 0.9% 500 ML INFUS.BAG IV ONE (17:46)
[2025-05-15] MEDS: HEPARIN NA (PORCINE) 5,000 UNITS/ML 1ML VIAL SQ SCH (22:10)
[2025-05-16] MEDS ORDERED: ACETAMINOPHEN 325 MG TABLET (FP) ONE (01:22)
[2025-05-16] MEDS: ACETAMINOPHEN 325 MG TABLET (FP) PO PRN (01:31)
[2025-05-16 06:48] LABS: GLUCOSE,RANDOM 99.0 mg/dL (74-106); MCHC 32.4 g/dl (32.2-35.5); MEAN CELL VOLUME 85.1 fl (79.4-94.8); MEAN PLT VOLUME 9.7 fl (9.4-12.3); RDW 14.0 % (12.5-17.0); TOT PROT 7.5 g/dl (6.4-8.2)
[2025-05-16 06:50] LABS: CO2 16.0 mmol/L (21-32)
[2025-05-16 06:51] LABS: ALK PHOS 135.0 U/L (40-150)
[2025-05-16 06:54] LABS: CREATININE 1.55 mg/dL (0.55-1.3); SGOT/AST 25.0 U/L (5-34); SGPT/ALT 16.0 U/L (0-55)
[2025-05-16] MEDS ORDERED: ATORVASTATIN CA 10 MG TABLET (FP) ONE (09:13)
[2025-05-16] MEDS ORDERED: ATENOLOL 50 MG TABLET (FP) ONE (09:13)
[2025-05-16] MEDS ORDERED: ASPIRIN COATED 81 MG TABLET.EC ONE (09:13)
[2025-05-16] MEDS ORDERED: SPIRONOLACTONE 25 MG TABLET ONE (09:14)
[2025-05-16] MEDS ORDERED: LISINOPRIL 10 MG TABLET ONE (09:14)
[2025-05-16] MEDS ORDERED: SPIRONOLACTONE 25 MG TABLET PO SCH (10:00)
[2025-05-16] MEDS: LISINOPRIL 10 MG TABLET PO SCH (10:35)
[2025-05-16 11:07] LABS: ARTERIAL BLD GAS O2 SATURATION 96.7 % (95-98); ARTERIAL BLOOD GAS BASE EXCESS -5.2 mmol/L (-2-2); ARTERIAL BLOOD GAS PCO2 31.10 mmHg (35-45); ARTERIAL BLOOD GAS PO2 86.5 mmHg (80-100); BG HCT 34.0 % (32.4-45.2)
[2025-05-16 11:09] LABS: ALLENS TEST POSITIVE
[2025-05-16] MEDS: ASPIRIN COATED 81 MG TABLET.EC PO SCH (11:40)
[2025-05-16] MEDS: ATENOLOL 50 MG TABLET (FP) PO SCH (11:40)
[2025-05-16] MEDS: ATORVASTATIN CA 10 MG TABLET (FP) PO SCH (11:40)
[2025-05-16] MEDS ORDERED: ERGOCALCIFEROL (VIT D2) 50,000 UNIT (1.25 MG) CAPSULE PO SCH ×2 (15:45)
[2025-05-16 16:23] LABS: URINE APPEARANCE CLEAR; URINE BILIRUBIN NEGATIVE (NEGATIVE); URINE COLOR YELLOW; URINE GLUCOSE (UA) NEGATIVE (NEGATIVE); URINE KETONE NEGATIVE (NEGATIVE); URINE LEUK ESTERASE NEGATIVE (NEGATIVE); URINE NITRITE NEGATIVE (NEGATIVE); URINE PROTEIN NEGATIVE (NEGATIVE); URINE UROBILINOGEN 0.2 mg/dL (0.2-1.0)
[2025-05-16] MEDS: ERGOCALCIFEROL (VIT D2) 50,000 UNIT (1.25 MG) CAPSULE PO SCH (17:34)
[2025-05-16] MEDS: SODIUM BICARBONATE 650 MG TABLET PO SCH (21:17)
[2025-05-17] MEDS: NIFEdipine E.R. 30 MG TABLET PO SCH (08:21)
[2025-05-17 08:33] LABS: ABSOLUTE IMMATURE GRANULOCYTES 0.11 x10^3/uL (0.0-0.031); BASOPHILS # 0.06 x10^3/uL (0.01-0.08); EOSINOPHIL % 3.7 % (0.7-5.8); EOSINOPHILS # 0.48 x10^3/uL (0.04-0.36); MCHC 32.0 g/dl (32.2-35.5); MEAN CELL VOLUME 85.8 fl (79.4-94.8); MEAN PLT VOLUME 9.7 fl (9.4-12.3); MONOCYTE # 0.81 x10^3/uL (0.24-0.86); MONOCYTE % 6.3 % (4.7-12.5); RDW 14.3 % (12.5-17.0)
[2025-05-17 08:46] LABS: GLUCOSE,RANDOM 101.0 mg/dL (74-106)
[2025-05-17 08:47] LABS: TOT PROT 7.6 g/dl (6.4-8.2)
[2025-05-17 08:48] LABS: CO2 16.0 mmol/L (21-32)
[2025-05-17 08:49] LABS: ALK PHOS 130.0 U/L (40-150)
[2025-05-17 08:52] LABS: SGOT/AST 20.0 U/L (5-34); SGPT/ALT 13.0 U/L (0-55)
[2025-05-17 08:53] LABS: CREATININE 1.56 mg/dL (0.55-1.3)
[2025-05-17 09:17] LABS: IRON SERUM 44.0 ug/dL (50-175)
[2025-05-17 09:18] LABS: IRON SERUM 45 ug/dL (50-175)
[2025-05-17] MEDS ORDERED: amLODIPine BESYLATE 5 MG TABLET (FP) PO SCH (10:00)
[2025-05-18 02:28] VITALS: RESP 18
[2025-05-18 06:43] VITALS: PULSE 73
[2025-05-18 08:00] LABS: ABSOLUTE IMMATURE GRANULOCYTES 0.12 x10^3/uL (0.0-0.031); BASOPHILS # 0.07 x10^3/uL (0.01-0.08); EOSINOPHIL % 3.5 % (0.7-5.8); EOSINOPHILS # 0.49 x10^3/uL (0.04-0.36); MCHC 31.6 g/dl (32.2-35.5); MEAN CELL VOLUME 86.7 fl (79.4-94.8); MEAN PLT VOLUME 9.6 fl (9.4-12.3); MONOCYTE # 0.86 x10^3/uL (0.24-0.86); MONOCYTE % 6.1 % (4.7-12.5); RDW 14.6 % (12.5-17.0)
[2025-05-18 08:27] LABS: GLUCOSE,RANDOM 129.0 mg/dL (74-106)
[2025-05-18 08:28] LABS: CO2 16.0 mmol/L (21-32)
[2025-05-18 08:32] LABS: CREATININE 1.45 mg/dL (0.55-1.3)
[2025-05-18 08:53] VITALS: BP 150/63; TEMP 98.1
== END 2025-05-18 14:28 | disposition home or self-care (01) | DRG 948 ==
LOC: JER 13:52 → JERBED 18:21 → J4S 05-16 09:48 → OBSVTOIN 05-16 16:12
PROVIDERS: ADMIT Hospitalist; ATTEND Internal Medicine
DX: R60.0 Localized edema (principal); N17.9 Acute kidney failure, unspecified; E87.20 Acidosis, unspecified; R06.02 Shortness of breath; I10 Essential (primary) hypertension; E78.5 Hyperlipidemia, unspecified; E66.9 Obesity, unspecified; Z68.33 Body mass index [BMI] 33.0-33.9, adult; D64.9 Anemia, unspecified; T46.1X5A Adverse effect of calcium-channel blockers, initial encounter
CPT/HCPCS: 36415; 36600; 71045-TC-FY; 71250-TC; 76775-TC; 80048; 80053; 81003; 82436; 82550; 82607; 82728; 82803; 83540; 83550; 83735; 83880; 84100; 84133; 84300; 84484; 85025; 85027; 86803; 87389; 93005; 93010; 93306-TC; 93970-TC; 99285-25; G0378